=== PATIENT | female | born 1990 | race Caucasian/White ===

== ENCOUNTER 2018-03-27 15:32 | Emergency (ER) | payer MEDICAID ==
[~2018-03-27] VITALS: Ht 165.1 cm; Wt 45.4 kg
[2018-03-27 15:41] VITALS: BP 129/92
--- NOTE | 2018-03-27 17:10 | NUR ---
PT CALLED IN TRIAGE LOBBY AND OUTSIDE. NO ANSWER
--- NOTE | 2018-03-27 17:30 | NUR ---
PT CALLED FOR BED AND NO ANSWER
--- NOTE | 2018-03-27 17:38 | NUR ---
PATIENT LEFT WITHOUT BEING SEEN BY DR. BLAIR. NO FURTHER CARE PROVIDED FOR PATIENT.
== END 2018-03-27 17:38 | disposition left against medical advice (07) ==
LOC: MED 15:32
DX: Z53.21 Procedure and treatment not carried out due to patient leaving prior to being seen by health care provider (principal)

== ENCOUNTER 2018-12-15 11:30 | Emergency (ER) | payer MEDICAID ==
[~2018-12-15] VITALS: Ht 167.6 cm; Wt 55.5 kg
[2018-12-15 11:30] VITALS: BP 120/71
--- NOTE | 2018-12-15 11:30 | NUR ---
pt ambulated to bed 6
--- NOTE | 2018-12-15 11:44 | NUR ---
PATIENT PRESENTS TO ED WITH THE CHIEF C/O LEFT EAR PAIN. PT STATED SHE HAS BUMP IN HER LEFT EAR FOR A WEEK. BUMP WAS HARD IN THE BEGINNING AND GETTING SOFTER. FLUCTUATION IN SIZE. RED AND SOFT BUMP NOTED ON LEFT EAR. NO DRAINAGE FROM EAR. DENIES ANY PAIN AT THIS TIME. PER PT SHE WAS SEEN BY HER PCP YESTERDAY AND WAS TOLD THAT HER DR. WILL PRESCRIBE ANTIBIOTICS BUT NEVER RECEIVED ANY ANTIBIOTIC PRESCRIPTION. DENIES N/V/D; SKIN IS PINK/WARM/DRY; AAOX4 WITH EVEN AND STEADY GAIT. AFEBRILE. NO SOB, OR COUGH NOTED AT THIS TIME.VSS; PATIENT POSITIONED FOR COMFORT; HOB ELEVATED; BEDRAILS UP X2; BED DOWN. ER MD MADE AWARE OF PT STATUS.
--- NOTE | 2018-12-15 12:06 | NUR ---
SEEN BY DR. LORENZO.
[2018-12-15 12:18] VITALS: BP 127/78
--- NOTE | 2018-12-15 12:18 | NUR ---
Patient discharged with v/s stable. Written and verbal after care instructions given and explained. Patient verbalized understanding. Ambulatory with steady gait. All questions addressed prior to discharge. Advised to follow up with PMD.
== END 2018-12-15 12:18 | disposition home or self-care (01) ==
LOC: MED 11:30
DX: H60.02 Abscess of left external ear (principal)
CPT/HCPCS: 69020; 99284

== ENCOUNTER 2019-01-28 12:18 | Emergency (ER) | payer MEDICAID ==
[~2019-01-28] VITALS: Ht 167.6 cm; Wt 54.0 kg
[2019-01-28 12:31] VITALS: BP 102/68
--- NOTE | 2019-01-28 12:41 | NUR ---
PT AMB TO BED 7
[2019-01-28] MEDS ORDERED: NACL 0.9% 1,000 ML IV ONE ×2 (12:55→14:10)
--- NOTE | 2019-01-28 12:59 | NUR ---
C/O BODY ACHE, GENERAL WEAKNESS X YESTERDAY & DIZZINESS X TODAY. A/A/O X4. RESPONDING APPROPRIATE AND FOLLOWING COMMANDS WITHOUT DIFFICULTY. AFEBRILE. PT VERBALIZED FEELING "COLD THEN HOT SENSATION TO BILATERAL LOWER EXTREMITIES AND A TINGLING SENSATION TO BILATERAL UPPER & LOWER EXTREMITIES. SIDE RAIL UP X1 FOR SAFETY. WILL CONTINUE TO MONITOR CLOSELY.
[2019-01-28 13:13] LABS: BASOPHILS % (AUTO) 0.5 % (0.0-2.0); EOSINOPHILS # (AUTO) 0.1 K/uL (0-0.4); EOSINOPHILS % (AUTO) 1.5 % (0.0-4.0); HEMATOCRIT 38.8 % (36-48); HEMOGLOBIN 12.9 g/dL (12.0-16.0); LYMPHOCYTES # (AUTO) 1.7 K/uL (2.5-16.5); LYMPHOCYTES % (AUTO) 34.7 % (20.5-51.1); MEAN CORPUSCULAR HEMOGLOBIN 32 pg (27-31); MEAN CORPUSCULAR HGB CONC 33 g/dL (33-37); MEAN CORPUSCULAR VOLUME 94.9 fL (80-94); MONOCYTES # (AUTO) 0.3 K/uL (0.8-1.0); MONOCYTES % (AUTO) 5.6 % (1.7-9.3); NEUTROPHILS # (AUTO) 2.9 K/uL (1.8-7.7); NEUTROPHILS % (AUTO) 57.7 % (42.2-75.2); PLATELET COUNT (AUTO) 171 K/uL (140-450); RED BLOOD CELL COUNT(AUTO) 4.09 MIL/uL (4.20-5.40); RED CELL DISTRIBUTION WIDTH 12.9 % (11.6-13.7)
[2019-01-28 13:23] LABS: ANION GAP 11.9 (8-16); CARBON DIOXIDE 26.7 mmol/L (21-32); CREATININE 0.5 mg/dL (0.6-1.3); POTASSIUM 3.6 mmol/L (3.5-5.1)
[2019-01-28 13:30] LABS: TOTAL BILIRUBIN 0.9 mg/dL (0.0-1.0)
--- NOTE | 2019-01-28 13:37 | NUR ---
IV INSERTION TO RIGHT AC AFTER 1 ATTEMPT. FLUIDS INFUSING ORDERED.
[2019-01-28 13:44] LABS: APPEARANCE,URINE SL CLOUDY (CLEAR); BILIRUBIN,URINE NEGATIVE (NEGATIVE); BLOOD, URINE NEGATIVE (NEGATIVE); COLOR,URINE YELLOW (YELLOW); LEUKOCYTE ESTERASE ,URINE NEGATIVE (NEGATIVE); NITRITE, URINE NEGATIVE (NEGATIVE); UGLUCOSE NEGATIVE (NEGATIVE)
[2019-01-28 16:09] VITALS: BP 96/60
--- NOTE | 2019-02-03 10:34 | NUR ---
Confirmed with RN that 1000 ml 0.9NS IV bolus completed at 1600. Late entry
== END 2019-01-28 16:10 | disposition home or self-care (01) ==
LOC: MED 12:18
DX: E86.0 Dehydration (principal); R55 Syncope and collapse; R20.0 Anesthesia of skin
CPT/HCPCS: 36415; 80053; 81003; 81025; 85025; 96360; 96361; 99283; J7030

== ENCOUNTER 2019-06-22 18:55 | Emergency (ER) | payer MEDICAID ==
[~2019-06-22] VITALS: Ht 167.6 cm; Wt 53.5 kg
[2019-06-22 19:30] VITALS: BP 128/70
--- NOTE | 2019-06-22 19:33 | NUR ---
TO LOBBY A/W BED AMBULATORY
--- NOTE | 2019-06-22 19:33 | NUR ---
VISUAL ACUITY BOTH EYE 20/50 LEFT EYE 20/70 RT EYE 20/70
--- NOTE | 2019-06-22 20:30 | NUR ---
PT AMBULATED TO BED 12
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
--- NOTE | 2019-06-22 20:50 | NUR ---
NO BRUISING OR ABRASION NOTED UPON EXAMINATION FULL RANGE OF MOTION WITH NECK AND SHOULDERS WITH PAIN.
[2019-06-22] MEDS ORDERED: KETOROLAC 30 MG/ML VIAL IM ONE (21:05)
--- NOTE | 2019-06-22 21:13 | NUR ---
REPORT TO LEV LEARY
[2019-06-22] MEDS: KETOROLAC 30 MG/ML VIAL IM ONE (21:22)
[2019-06-22 21:30] VITALS: BP 128/70
--- NOTE | 2019-06-22 21:30 | NUR ---
Patient discharged with v/s stable. Written and verbal after care instructions given and explained. Patient alert, oriented and verbalized understanding of instructions. Ambulatory with steady gait. All questions addressed prior to discharge. ID band removed. Patient advised to follow up with PMD. Rx of IBUPROFEN, ACETAMINOPHEN given. Patient educated on indication of medication including possible reaction and side effects. Opportunity to ask questions provided and answered.
== END 2019-06-22 21:30 | disposition home or self-care (01) ==
LOC: MED 18:55
DX: S16.1XXA Strain of muscle, fascia and tendon at neck level, initial encounter (principal); V47.5XXA Car driver injured in collision with fixed or stationary object in traffic accident, initial encounter; Y93.89 Activity, other specified; Y92.410 Unspecified street and highway as the place of occurrence of the external cause; Y99.8 Other external cause status
CPT/HCPCS: 72040; 96372; 99283; J1885

== ENCOUNTER 2019-09-10 12:08 | Emergency (ER) | payer MEDICAID ==
[~2019-09-10] VITALS: Ht 167.6 cm; Wt 54.4 kg
[2019-09-10 12:11] VITALS: BP 111/86
--- NOTE | 2019-09-10 12:25 | NUR ---
PT C/O INTERMITTENT BILATERAL PELVIC PAIN RADIATING TO LOWER BACK BILATERAL X1 DAYS AND VAGINAL BLEEDING/SPOTTING X2 DAYS. PT ALSO REPORTS HAVING NAUSEA SINCE LAST NIGHT. DENIES UTI SX OR LEG PAIN. HX PE IN PAST . PATIENT STATES PAIN OF 7/10 AT THIS TIME; VSS; PATIENT POSITIONED FOR COMFORT; HOB ELEVATED; BEDRAILS UP X1; BED DOWN. ER MD MADE AWARE OF PT STATUS.
--- NOTE | 2019-09-10 14:58 | NUR ---
PT HAS BEEN TAKEN BACK FROM U/S VIA WHEELCHAIR ASSISTED BY [employer] TECHNICIAN.
[2019-09-10] MEDS ORDERED: IBUPROFEN 800 MG TAB PO ONE (15:05)
[2019-09-10 15:28] VITALS: BP 99/69
== END 2019-09-10 15:28 | disposition home or self-care (01) ==
LOC: MED 12:08
DX: N83.201 Unspecified ovarian cyst, right side (principal)
CPT/HCPCS: 76856; 81002; 81025; 99284; Q0092

== ENCOUNTER 2019-09-15 19:36 | Emergency (ER) | payer MEDICAID ==
[~2019-09-15] VITALS: Ht 167.6 cm; Wt 53.1 kg
[2019-09-15 19:38] VITALS: BP 115/77
--- NOTE | 2019-09-15 19:47 | NUR ---
PT AMBULATED TO BED 10
--- NOTE | 2019-09-15 19:53 | NUR ---
PT AMBULATED TO RESTROOM. URINE COLLECTED FROM PT AT THIS TIME.
--- NOTE | 2019-09-15 19:55 | NUR ---
28 Y/O F C/O RT SIDED NECK PAIN THAT RADIATES TO JAW AND CATHOLIC X3 HRS. PT STATES SHE WAS IN CLASS WHEN PAIN BEGAN. DENIES TRAUMA, DENIES EAR PAIN. NO SWELLING NOR DEFORMITY NOTED. 5/10 ACHING PAIN AT THIS TIME. PT STATES NO DIFFICULTY SPEAKING OR SWALLOWING. RR EVEN AND UNLABORED. LMP 09/09/19. PT SITTING IN BED CALM AND PLEASANT, BED LOCKED AND IN LOW POSITON. VSS. MEDHX: DENIES ALLERGIES: NKA
--- NOTE | 2019-09-15 19:59 | NUR ---
Dr. Stafford examining patient.
[2019-09-15] MEDS ORDERED: KETOROLAC 30 MG/ML VIAL IM ONE (20:30)
--- NOTE | 2019-09-15 20:46 | NUR ---
PT STATES DECREASE IN PAIN. 1/10 ACHING PAIN.
[2019-09-15 20:47] VITALS: BP 115/77
--- NOTE | 2019-09-15 20:48 | NUR ---
Patient discharged with v/s stable. Written and verbal after care instructions given and explained. Patient alert, oriented and verbalized understanding of instructions. Ambulatory with steady gait. All questions addressed prior to discharge. ID band removed. Patient advised to follow up with PMD.Opportunity to ask questions provided and answered.
== END 2019-09-15 20:48 | disposition home or self-care (01) ==
LOC: MED 19:36
DX: K11.5 Sialolithiasis (principal); M54.2 Cervicalgia; R11.0 Nausea
CPT/HCPCS: 81025; 96372; 99283; J1885

== ENCOUNTER 2019-11-23 18:56 | Emergency (ER) | payer MEDICAID ==
[~2019-11-23] VITALS: Ht 167.6 cm; Wt 56.7 kg
[2019-11-23 19:33] VITALS: BP 103/71
--- NOTE | 2019-11-23 19:36 | NUR ---
TO LOBBY A/W BED AMBULATORY
--- NOTE | 2019-11-23 20:40 | NUR ---
pt ambulated to bed 05
--- NOTE | 2019-11-23 20:50 | NUR ---
28 YO F BIB SELF C/O PERSISTENT PRODUCTIVE COUGH WITH GREEN/YELLOW PHLEGHM X 1 WEEK WITH NEW ONSET 4/10 NECK PAIN THAT STARTED YESTERDAY. PT STATES SHE CANNOT MOVE NECK LEFT TO RIGHT WITHOUT INTENSE PAIN. PT MEDICATED WITH ADVIL AT HOME WITH TEMPORARY RELIEF. PT ALSO REPORTS TIGHT THROAT WITH PAINFUL SWALLOWING, DIZZINESS THAT COMES AND GOES. DENIES FEVER BUT REPORTS CHILLS AND NIGHT SWEATS. COUGH NOT HEARD AT THIS TIME. LUNGS CTA. BREATHING EVEN, UNLABORED. SKIN PINK, WARM, DRY. PMH-- DENIES RX-- DENIES
--- NOTE | 2019-11-23 20:54 | NUR ---
TAKEN TO XRAY VIA WC.
--- NOTE | 2019-11-23 21:05 | NUR ---
COLLECTED THROAT SWABS.
--- NOTE | 2019-11-23 21:10 | NUR ---
MELINDA STEPHENS EVAL AT BEDSIDE.
[2019-11-23] MEDS ORDERED: KETOROLAC 30 MG/ML VIAL IM ONE (21:15)
--- NOTE | 2019-11-23 21:20 | NUR ---
MEDICATED WITH 30 MG IM TORADOL FOR 8 NECK PAIN WHILE TURNING HEAD. WILL REASSESS.
--- NOTE | 2019-11-23 21:50 | NUR ---
PT REPORTS PAIN RELIEF; 11/22. PT STATES "MY NECK FEELS SO MUCH BETTER".
[2019-11-23] MEDS ORDERED: DEXAMETHASONE 10 MG/ML VIAL IM ONE (22:00)
--- NOTE | 2019-11-23 22:10 | NUR ---
MEDICATED WITH 10 MG DECADRON IM FOR COUGH. INSTRUCTED PT TO WAIT 10-15 TO MONITOR FOR ASE AND THEN SHE MAY LEAVE.
[2019-11-23 22:12] VITALS: BP 112/67
--- NOTE | 2019-11-23 22:12 | NUR ---
Patient discharged with v/s stable. Written and verbal after care instructions given and explained. Patient alert, oriented and verbalized understanding of instructions. Ambulatory with steady gait. All questions addressed prior to discharge. ID band removed. Patient advised to follow up with PMD. Rx of Tessalon Perles, Ibuprofen, Prednisone and Albuterol given. Patient educated on indication of medication including possible reaction and side effects. Opportunity to ask questions provided and answered.
== END 2019-11-23 22:12 | disposition home or self-care (01) ==
LOC: MED 18:56
DX: J40 Bronchitis, not specified as acute or chronic (principal); M54.2 Cervicalgia; R51 Headache
CPT/HCPCS: 71046; 81002; 81025; 87081; 87804; 96372; 99284; J1100; J1885

== ENCOUNTER 2020-01-09 16:53 | Emergency (ER) | payer MEDICAID ==
[~2020-01-09] VITALS: Ht 167.6 cm; Wt 54.4 kg
[2020-01-09 16:54] VITALS: BP 124/48
[2020-01-09] MEDS ORDERED: IBUPROFEN 600 MG TAB PO ONE (18:25)
[2020-01-09 18:38] VITALS: BP 120/51
== END 2020-01-09 18:38 | disposition home or self-care (01) ==
LOC: MED 16:53
DX: J11.1 Influenza due to unidentified influenza virus with other respiratory manifestations (principal); R06.82 Tachypnea, not elsewhere classified
CPT/HCPCS: 71045; 87804; 99284; Q0092

== ENCOUNTER 2020-05-04 14:43 | Emergency (ER) | payer MEDICAID ==
[~2020-05-04] VITALS: Ht 167.6 cm; Wt 54.9 kg
[2020-05-04 15:17] VITALS: BP 131/94
[2020-05-04 16:47] LABS: BASOPHILS % (AUTO) 0.7 % (0.0-2.0); EOSINOPHILS % (AUTO) 0.5 % (0.0-4.0); HEMATOCRIT 40.3 % (36-48); HEMOGLOBIN 12.9 g/dL (12.0-16.0); LYMPHOCYTES # (AUTO) 1.9 K/uL (2.5-16.5); LYMPHOCYTES % (AUTO) 34.9 % (20.5-51.1); MEAN CORPUSCULAR HEMOGLOBIN 30 pg (27-31); MEAN CORPUSCULAR HGB CONC 32 g/dL (33-37); MEAN CORPUSCULAR VOLUME 91.7 fL (80-94); MONOCYTES # (AUTO) 0.3 K/uL (0.8-1.0); NEUTROPHILS # (AUTO) 3.3 K/uL (1.8-7.7); NEUTROPHILS % (AUTO) 58.9 % (42.2-75.2); PLATELET COUNT (AUTO) 215 K/uL (140-450); RED CELL DISTRIBUTION WIDTH 15.7 % (11.6-13.7); WHITE BLOOD COUNT (AUTO) 5.5 K/uL (4.8-10.8)
--- NOTE | 2020-05-04 17:02 | NUR ---
PT TAKEN TO BED 6.
[2020-05-04 17:08] LABS: ALBUMIN 4.2 g/dL (3.4-5.0); ANION GAP 15.6 (8-16); CARBON DIOXIDE 25.5 mmol/L (21-32); CREATININE 0.6 mg/dL (0.6-1.3); POTASSIUM 3.1 mmol/L (3.5-5.1); TOTAL BILIRUBIN 0.6 mg/dL (0.0-1.0)
--- NOTE | 2020-05-04 17:22 | NUR ---
29 Y/O FEMALE C/O CRUSHING CHEST PAIN THAT BEGAN THIS MORNING RADIATING TO LEFT SHOULDER/LEFT JAW. PT STATES WHILE LAYING ON HER BACK, SHE BEGAN FEELING SOB, BUT IS NO LONGER SOB. DENIES ANY RECENT COUGH/FEVER/CHILLS. PT DENIES ANY N/V. AMBULATORY WITH STEADY GAIT. VSS.
--- NOTE | 2020-05-04 17:22 | NUR ---
PT UNABLE TO GIVE URINE SAMPLE AT THIS TIME
[2020-05-04 18:11] VITALS: BP 125/90
--- NOTE | 2020-05-04 18:12 | NUR ---
Patient discharged with v/s stable. Written and verbal after care instructions given and explained. Patient alert, oriented and verbalized understanding of instructions. Ambulatory with steady gait. All questions addressed prior to discharge. ID band removed. Patient advised to follow up with PMD. Rx of Zofran ODT and Ibuprofen 400mg given. Patient educated on indication of medication including possible reaction and side effects. Opportunity to ask questions provided and answered.
== END 2020-05-04 18:12 | disposition home or self-care (01) ==
LOC: MED 14:43
DX: R07.9 Chest pain, unspecified (principal); I51.9 Heart disease, unspecified; F17.200 Nicotine dependence, unspecified, uncomplicated
CPT/HCPCS: 36415; 71045; 80053; 81002; 81025; 83880; 84484; 85025; 93005; 99285

== ENCOUNTER 2020-07-31 17:01 | Emergency (ER) | payer MEDICAID ==
[~2020-07-31] VITALS: Ht 167.6 cm; Wt 53.5 kg
[2020-07-31 17:05] VITALS: BP 100/74
--- NOTE | 2020-07-31 17:20 | NUR ---
29 year old female complains of abdominal pain that radiates to the back starting yesterday. Pt states that she just recently finished her antibiotic treatment for a UTI but now she is experiencing pain. Pt denies nausea, vomitting, or diarrhea. PT AOX4, breathing even and unlabored, skin warm and dry. bed in lowest position, locked, bed rail upx1. PMH - denies allergies - NKA
[2020-07-31] MEDS ORDERED: ONDANSETRON 4 MG ODT PO ONE (17:40)
[2020-07-31 18:19] LABS: APPEARANCE,URINE CLEAR (CLEAR); BILIRUBIN,URINE NEGATIVE (NEGATIVE); BLOOD, URINE NEGATIVE (NEGATIVE); COLOR,URINE YELLOW (YELLOW); LEUKOCYTE ESTERASE ,URINE NEGATIVE (NEGATIVE); NITRITE, URINE NEGATIVE (NEGATIVE); UGLUCOSE NEGATIVE (NEGATIVE)
[2020-07-31] MEDS ORDERED: NACL 0.9% 1,000 ML IV ONE (18:30)
--- NOTE | 2020-07-31 18:42 | NUR ---
LAB AT BEDSIDE.
[2020-07-31 18:50] LABS: BASOPHILS % (AUTO) 0.4 % (0.0-2.0); EOSINOPHILS # (AUTO) 0.1 K/uL (0-0.4); EOSINOPHILS % (AUTO) 1.8 % (0.0-4.0); HEMOGLOBIN 11.8 g/dL (12.0-16.0); LYMPHOCYTES % (AUTO) 28.8 % (20.5-51.1); MEAN CORPUSCULAR HEMOGLOBIN 31 pg (27-31); MEAN CORPUSCULAR HGB CONC 34 g/dL (33-37); MEAN CORPUSCULAR VOLUME 90.9 fL (80-94); MONOCYTES # (AUTO) 0.4 K/uL (0.8-1.0); MONOCYTES % (AUTO) 5.4 % (1.7-9.3); NEUTROPHILS # (AUTO) 4.5 K/uL (1.8-7.7); NEUTROPHILS % (AUTO) 63.6 % (42.2-75.2); PLATELET COUNT (AUTO) 157 K/uL (140-450); RED BLOOD CELL COUNT(AUTO) 3.85 MIL/uL (4.20-5.40); RED CELL DISTRIBUTION WIDTH 15.6 % (11.6-13.7); WHITE BLOOD COUNT (AUTO) 7.1 K/uL (4.8-10.8)
[2020-07-31 19:04] LABS: ANION GAP 14.8 (8-16); CARBON DIOXIDE 25.2 mmol/L (21-32); CREATININE 0.7 mg/dL (0.6-1.3); TOTAL BILIRUBIN 0.4 mg/dL (0.0-1.0)
--- NOTE | 2020-07-31 19:10 | NUR ---
RECEIVED REPORT FROM GIBRAN BRENNAN FOR TRANSFER OF CARE.
[2020-07-31 19:32] VITALS: BP 105/57
--- NOTE | 2020-07-31 19:32 | NUR ---
Patient discharged with v/s stable. Written and verbal after care instructions given and explained. Patient alert, oriented and verbalized understanding of instructions. Ambulatory with steady gait. All questions addressed prior to discharge. ID band removed. Patient advised to follow up with PMD. Rx of IBUPROFEN & ZOFRAN given. Patient educated on indication of medication including possible reaction and side effects. Opportunity to ask questions provided and answered.
== END 2020-07-31 19:32 | disposition home or self-care (01) ==
LOC: MED 17:01
DX: R10.9 Unspecified abdominal pain (principal); M54.9 Dorsalgia, unspecified
CPT/HCPCS: 36415; 80053; 81003; 81025; 83690; 85025; 96360; 99283; J7030; Q0162; 81002

== ENCOUNTER 2021-04-01 22:33 | Emergency (ER) | payer MEDICAID ==
[~2021-04-01] VITALS: Ht 167.6 cm; Wt 61.7 kg
[2021-04-01 22:38] VITALS: BP 122/86
[2021-04-01 23:24] LABS: BASOPHILS # (AUTO) 0.1 K/uL (0.00-0.22); BASOPHILS % (AUTO) 1.4 % (0.0-2.0); EOSINOPHILS # (AUTO) 0.1 K/uL (0-0.4); EOSINOPHILS % (AUTO) 2.5 % (0.0-4.0); HEMATOCRIT 29.1 % (36-48); HEMOGLOBIN 9.2 g/dL (12.0-16.0); LYMPHOCYTES # (AUTO) 2.4 K/uL (2.5-16.5); LYMPHOCYTES % (AUTO) 39.5 % (20.5-51.1); MEAN CORPUSCULAR HEMOGLOBIN 28 pg (27-31); MEAN CORPUSCULAR HGB CONC 32 g/dL (33-37); MEAN CORPUSCULAR VOLUME 86.5 fL (80-94); MONOCYTES # (AUTO) 0.4 K/uL (0.8-1.0); NEUTROPHILS % (AUTO) 49.6 % (42.2-75.2); PLATELET COUNT (AUTO) 227 K/uL (140-450); RED BLOOD CELL COUNT(AUTO) 3.36 MIL/uL (4.20-5.40); RED CELL DISTRIBUTION WIDTH 16.4 % (11.6-13.7)
[2021-04-01 23:27] LABS: APPEARANCE,URINE CLEAR (CLEAR); BILIRUBIN,URINE NEGATIVE (NEGATIVE); BLOOD, URINE 2+ (NEGATIVE); COLOR,URINE YELLOW (YELLOW); LEUKOCYTE ESTERASE ,URINE TRACE (NEGATIVE); NITRITE, URINE NEGATIVE (NEGATIVE); UGLUCOSE NEGATIVE (NEGATIVE)
[2021-04-01 23:34] LABS: WBC,URINE 0-5 /HPF (0-5)
[2021-04-01] MEDS ORDERED: ALUMINUM HYD/MAG/SIMETHICONE 30 ML UDC PO ONE (23:35)
[2021-04-01] MEDS ORDERED: FAMOTIDINE 20 MG TAB PO ONE (23:35)
[2021-04-01] MEDS ORDERED: MORPHINE SULFATE 4 MG/ML SYR IVP ONE (23:35)
[2021-04-01 23:41] LABS: ALBUMIN 3.5 g/dL (3.4-5.0); ANION GAP 8.9 (8-16); CARBON DIOXIDE 28.4 mmol/L (21-32); CREATININE 0.6 mg/dL (0.6-1.3); POTASSIUM 4.3 mmol/L (3.5-5.1); TOTAL BILIRUBIN 0.2 mg/dL (0.0-1.0)
[2021-04-02] MEDS ORDERED: FAMO-90 PO (01:07)
[2021-04-02 02:01] VITALS: BP 122/86
== END 2021-04-02 01:55 | disposition home or self-care (01) ==
LOC: MED 22:33
DX: R10.10 Upper abdominal pain, unspecified (principal); Z79.899 Other long term (current) drug therapy
CPT/HCPCS: 36415; 76705; 80053; 81001; 81025; 83690; 85025; 87086; 99284; J2270

== ENCOUNTER 2021-09-17 12:13 | Emergency (ER) | payer MEDICAID ==
[~2021-09-17] VITALS: Ht 170.2 cm; Wt 58.1 kg
[~2021-09-17 12:13] MED LIST: FAMO-90 PO
[2021-09-17 12:48] VITALS: BP 145/63
--- NOTE | 2021-09-17 14:22 | NUR ---
PT TAKEN TO ER BED 8
[2021-09-17] MEDS ORDERED: KETOROLAC 30 MG/ML VIAL IM ONE (14:35)
--- NOTE | 2021-09-17 14:58 | NUR ---
PATIENT PRESENTS TO ER WITH RIGHT SHOULDER PAIN NO BRUISES, NO SWELLING. AWAITING FOR X-RAY.
[2021-09-17] MEDS ORDERED: NAPR-54 PO (15:25)
[2021-09-17 15:40] VITALS: BP 145/63
== END 2021-09-17 15:45 | disposition home or self-care (01) ==
LOC: MED 12:13
DX: M79.601 Pain in right arm (principal); M25.511 Pain in right shoulder; Z79.899 Other long term (current) drug therapy; Z79.1 Long term (current) use of non-steroidal anti-inflammatories (NSAID)
CPT/HCPCS: 73030; 73080; 73110; 96372; 99284; J1885; Q0092

== ENCOUNTER 2021-10-14 15:01 | Emergency (ER) | payer MEDICAID ==
[~2021-10-14] VITALS: Ht 170.2 cm; Wt 59.9 kg
[~2021-10-14 15:01] MED LIST changes: +NAPR-54 PO
[2021-10-14 15:52] VITALS: BP 131/97
[2021-10-14] MEDS ORDERED: NACL 0.9% 1,000 ML IV ONE (17:15)
[2021-10-14] MEDS ORDERED: ONDANSETRON 4 MG ODT PO ONE (17:15)
--- NOTE | 2021-10-14 20:39 | NUR ---
PT CALLED AT 2028 NO ANSWER
--- NOTE | 2021-10-14 20:45 | NUR ---
PATIENT ELOPED FROM FACILITY. DISCHARGE INSTRUCTIONS NOT GIVEN TO PATIENT. DR. RUIZ NOTIFIED.
[2021-10-14 21:55] LABS: APPEARANCE,URINE CLEAR (CLEAR); COLOR,URINE STRAW (YELLOW)
[2021-10-14 21:56] LABS: BILIRUBIN,URINE NEGATIVE (NEGATIVE); BLOOD, URINE NEGATIVE (NEGATIVE); LEUKOCYTE ESTERASE ,URINE NEGATIVE (NEGATIVE); NITRITE, URINE NEGATIVE (NEGATIVE); PH,URINE 7.5 (5.0-9.0); UGLUCOSE NEGATIVE (NEGATIVE)
== END 2021-10-14 20:29 | disposition left against medical advice (07) ==
LOC: MED 15:01
DX: R11.2 Nausea with vomiting, unspecified (principal); F10.10 Alcohol abuse, uncomplicated; R53.1 Weakness; R06.02 Shortness of breath; R42 Dizziness and giddiness; F41.9 Anxiety disorder, unspecified; Z79.899 Other long term (current) drug therapy
CPT/HCPCS: 81003; 99283

== ENCOUNTER 2022-05-28 07:27 | Emergency (ER) | payer SELFPAY ==
[~2022-05-28] VITALS: Ht 170.2 cm; Wt 56.7 kg
[2022-05-28 07:32] VITALS: BP 114/78
--- NOTE | 2022-05-28 07:38 | NUR ---
Pt ambulated to bed 01.
--- NOTE | 2022-05-28 07:39 | NUR ---
Dr. Alfonso evaluating patient at bedside.
[2022-05-28] MEDS ORDERED: ACET-8386 PO (07:51)
--- NOTE | 2022-05-28 08:20 | NUR ---
Patient discharged with v/s stable. Written and verbal after care instructions given. Patient alert, oriented and verbalized understanding of instructions. Ambulatory with steady gait. All questions addressed prior to discharge. ID band removed. Patient advised to follow up with PMD. Rx of Hydrocodone-Acetaminophen given. Opportunity to ask questions provided and answered.
--- NOTE | 2022-05-28 08:21 | NUR ---
The patient's care was reviewed and supervised by Shyann Melgoza RN.
== END 2022-05-28 08:20 | disposition home or self-care (01) ==
LOC: MED 07:27
DX: K08.89 Other specified disorders of teeth and supporting structures (principal); Z79.899 Other long term (current) drug therapy
CPT/HCPCS: 99283

== ENCOUNTER 2023-05-08 06:10 | Emergency (ER) | payer MEDICAID ==
[~2023-05-08] VITALS: Ht 170.2 cm; Wt 60.1 kg
[~2023-05-08 06:10] MED LIST changes: +ACET-8905 PO
[2023-05-08 06:25] VITALS: BP 110/70; PULSE 114; RESP 17; TEMP 98; O2SAT 98
--- NOTE | 2023-05-08 06:25 | NUR ---
to bed ambulatory
[2023-05-08] MEDS ORDERED: ACETAMIN/CODEINE 120/12MG-5ML 5 ML UDC PO ONE (06:45)
[2023-05-08] MEDS ORDERED: ALBUTEROL SULFATE/IPRATROPIU 3 ML SOL IH ONE ×2 (06:45→07:54)
--- NOTE | 2023-05-08 06:45 | NUR ---
Dr. Clarke examining patient.
--- NOTE | 2023-05-08 06:51 | NUR ---
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 pt reports cough, congestion and mild dizziness. states difficulty breathing increases while side-lying. wheezing present. denies fever and chest pain. denies hx, rx and allergies
[2023-05-08] MEDS ORDERED: KETOROLAC 30 MG/ML VIAL IM ONE (07:05)
--- NOTE | 2023-05-08 07:40 | NUR ---
PT STATES SHE PAIN FREE NO SIGNS OF DISTRES NOTED. PT STATES SHE IS READY TO GO HOME.
--- NOTE | 2023-05-08 07:50 | NUR ---
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 pt reports cough, congestion and mild dizziness. states difficulty breathing increases while side-lying. wheezing present. denies fever and chest pain. No PMHX NKA
[2023-05-08 07:56] VITALS: PULSE 94; RESP 20; O2SAT 95
[2023-05-08] MEDS ORDERED: ROB PO (08:41)
[2023-05-08] MEDS ORDERED: ALBU0.0912 IH (08:41)
[2023-05-08] MEDS ORDERED: NAPR-54 PO (08:41)
--- NOTE | 2023-05-08 08:48 | NUR ---
PLAN OF CARE EXPLAINED TO PT . CALL LIGHT WITH IN REACH. PT HAS BEEN CLEARED FOR DISCHARGE WAITING FOR PAPERWORK FROM PROVIDER
[2023-05-08 09:06] VITALS: O2SAT 96
[2023-05-08 09:46] VITALS: BP 119/65; PULSE 88; RESP 22; TEMP 98; O2SAT 94
--- NOTE | 2023-05-08 10:10 | NUR ---
The patient's care was reviewed and supervised by TOÑA FATIMA RN.
== END 2023-05-08 09:12 | disposition home or self-care (01) ==
LOC: MED 06:10
DX: J20.9 Acute bronchitis, unspecified (principal); F17.200 Nicotine dependence, unspecified, uncomplicated; Z79.899 Other long term (current) drug therapy; Z79.1 Long term (current) use of non-steroidal anti-inflammatories (NSAID)
CPT/HCPCS: 71045; 94640; 96372; 99285; J1885; Q0092; Q0163; J7030

== ENCOUNTER 2023-10-31 10:36 | Emergency (ER) | payer MEDICAID ==
[~2023-10-31] VITALS: Ht 165.1 cm; Wt 68.0 kg
[~2023-10-31 10:36] MED LIST changes: +ALBU0.0912 IH; +ROB PO
[2023-10-31 11:02] VITALS: BP_SYST 104; BP_DIAS 104; BP_DIAS 61; PULSE 81; RESP 18; TEMP 98; O2SAT 98
[2023-10-31 11:54] VITALS: O2SAT 98
[2023-10-31] MEDS ORDERED: IBUP-2213 PO (12:13)
== END 2023-10-31 12:50 | disposition home or self-care (01) ==
LOC: MED 10:36
DX: R59.1 Generalized enlarged lymph nodes (principal); Z79.899 Other long term (current) drug therapy
CPT/HCPCS: 99282

== ENCOUNTER 2024-07-24 14:42 | Emergency (ER) | payer MEDICAID ==
[~2024-07-24] VITALS: Ht 167.6 cm; Wt 54.4 kg
[~2024-07-24 14:42] MED LIST changes: +IBUP-2213 PO; +NAPR-337 PO; -NAPR-54 PO
[2024-07-24 14:44] VITALS: BP 140/85; PULSE 100; RESP 16; TEMP 98.6; O2SAT 99
[2024-07-24] MEDS: IBUPROFEN 600 MG TAB PO ONE (15:11)
[2024-07-24] MEDS ORDERED: IBUP-2213 PO (15:12)
[2024-07-24] MEDS ORDERED: CEPH-588 PO (15:12)
[2024-07-24 15:20] VITALS: BP 140/80; PULSE 97; RESP 16; TEMP 98.6; O2SAT 99
== END 2024-07-24 15:20 | disposition home or self-care (01) ==
LOC: MED 14:42
DX: T63.001A Toxic effect of unspecified snake venom, accidental (unintentional), initial encounter (principal); Z79.899 Other long term (current) drug therapy; Y92.89 Other specified places as the place of occurrence of the external cause
CPT/HCPCS: 81025; 90471; 90715; 99283